=== PATIENT | female | born 1975 | race Caucasian/White ===

== ENCOUNTER 2020-04-09 08:41 | Outpatient (CLI) | payer OTHER, SELFPAY ==
--- NOTE | ~2020-04-09 | XR_ITS ---
XR wrist RT 2V DATE: 04/09/2020 08:57 INDICATION: Fall 2 weeks ago. Medial wrist pain. TECHNIQUE: AP and lateral views COMPARISON: None FINDINGS: No fracture, dislocation, periosteal reaction or bone destruction, erosive change or chondr ocalcinosis. IMPRESSION: Negative Reviewed, dictated and finalized at location A. IMPRESSION: Negative
== END 2020-04-09 08:42 | disposition home or self-care (01) ==
PROVIDERS: PCP Family Medicine; Visit Provider Physician Assistant Medical
DX: S69.91XA Unspecified injury of right wrist, hand and finger(s), initial encounter (principal)
CPT/HCPCS: 73100

== ENCOUNTER 2020-10-14 11:02 | Outpatient (CLI) | payer OTHER, SELFPAY ==
--- NOTE | ~2020-10-14 | XR_ITS ---
EXAMINATION: XR shoulder LT min 2V DATE: 10/14/2020 11:24 INDICATION: Left shoulder pain. TECHNIQUE: 4 views of left shoulder were obtained. COMPARISON: None. FINDINGS: Bone alignment is normal. No fracture. Acromioclavicular joint is normal. There is mild gle nohumeral joint osteoarthritis characterized by a tiny marginal osteophyte. IMPRESSION: 1. Mild left glenohumeral joint osteoarthritis. Reviewed, dictated and finalized at location A. [employer]
== END 2020-10-14 11:03 | disposition home or self-care (01) ==
LOC: ANHIMG 11:09
PROVIDERS: PCP Family Medicine; Visit Provider Physician Assistant Medical
DX: M19.012 Primary osteoarthritis, left shoulder (principal)
CPT/HCPCS: 73030

== ENCOUNTER 2022-10-25 00:59 | Day surgery (SDC) | payer OTHER, SELFPAY ==
[2022-10-08 14:54] VITALS: BMI 23.3
--- NOTE | 2022-10-25 12:08 | PM.HPGS ---
History of Present Illness History of Present Illness Consent: Risks, benefits, and alternatives have been discussed and questions answered. Patient agrees to proceed with procedure. Chief complaint: constipation, change in bowel habits Narrative: Mitra Gay is a 47 year old female here with ibs-constipation and intermittent abdominal pain, last colonoscopy 2010 Review of Systems Constitutional: Constitutional: Denies headache(s) and Denies weakness Eyes: Eyes: Denies blurry vision ENT: Reports Normal hearing present, Denies headache(s) and Denies neck pain Cardiovascular: Cardiovascular: Denies chest pain and Denies dyspnea Respiratory: Respiratory: Denies dyspnea Gastrointestinal: Gastrointestinal: Reports no additional gastrointestinal complaints Genitourinary: Genitourinary: Denies dysuria Musculoskeletal: Musculoskeletal: Denies neck pain Integumentary/Breasts: Skin/Breast: Denies dry skin Neurologic: Reports Normal hearing present, Denies headache(s) and Denies weakness Psychiatric: Psychiatric: Denies anxiety Endocrine: Endocrine: Denies change in body appearance Hematologic/Lymphatic: Hematologic/Lymphatic: Denies easy bleeding Allergic/Immunologic: Allergic/Immunologic: Denies urticaria PMFSH Past Medical History Medical History (Updated 09/15/22 @ 14:59 by Nani Locke APRN) Abdominal pain Body mass index (BMI) 23 or greater Change in bowel habits Chronic headache Colon cancer screening GERD (gastroesophageal reflux disease) Vagina bleeding Family History Family History Father Hypertension Mother Carcinoma Social History Social History Smoking status: Never smoker Alcohol intake: current Drinks per week: 2 Substance use: never Substance use type: does not use Living arrangements: with family Gender identity (if verbalized by the patient): Female Spiritual care concerns: No Meds Home Medications and Allergies Home Medications Medication Instructions Recorded Confirmed Type topiramate 25 mg tablet (Topamax) 125 mg PO DAILY 10/09/19 10/08/22 History venlafaxine 150 mg tablet,extended 225 mg PO QAM 10/10/19 10/08/22 History release 24 hr omega 4-cxo-uhf-fish oil 60 mg-90 2 cap PO DAILY 08/30/22 10/08/22 History mg-500 mg capsule (Fish Oil) buspirone 7.5 mg tablet 7.5 mg PO BID #60 tabs 09/11/22 10/08/22 Rx omeprazole 40 mg capsule,delayed 40 mg PO DAILY #30 caps 09/15/22 10/08/22 Rx release ubrogepant 50 mg tablet (Ubrelvy) 50 mg PO DAILY PRN Migraine 10/08/22 10/08/22 History Headache Allergies Allergy/AdvReac Type Severity Reaction Status Date / Time codeine Allergy Unknown Unknown Verified 10/08/22 14:52 Exam Const: General: comfortable and no acute distress HENMT: Face/Nose/Sinus: Normal nares present Eyes: General: appearance normal, both eyes and all related structures Neck: Neck: no JVD Resp: Auscultation: clear to auscultation bilaterally Cardio: Rate: regular rate Rhythm: regular rhythm GI: Inspection: non-distended GI Palp: Yes Soft to palpation Skin: General skin exam: normal color Neuro: General: gait normal Speech: normal speech Extrem: General: normal to inspection Psych: Mental Status: mental status grossly normal Assessment and Plan Assessment and plan (1) Constipation: Code(s): K59.00 - Constipation, unspecified Status: Acute Assessment and Plan: colonoscopy (2) Colon cancer screening: Code(s): Z12.11 - Encounter for screening for malignant neoplasm of colon Status: Acute (3) IBS (irritable bowel syndrome): Qualifiers: Irritable bowel syndrome type: with both diarrhea and constipation Qualified Code(s): K58.2 - Mixed irritable bowel syndrome Code(s): K58.9 - Irritable bowel syndrome without diarrhea Statu
[2022-10-25 12:12] VITALS: BP 116/75; PULSE 96; RESP 18; TEMP 36.3; O2SAT 100
--- NOTE | 2022-10-25 12:15 | WPDANESEPPF ---
Anes - Initial Pre Proc Eval Procedure: Operation Date: 10/25/22 13:30 Proposed Procedures p Colonoscopy - Graeme Vale MD Date/Time: 10/25/22 12:15 Surgeon: Graeme Vale MD Pre Op Diagnosis: constipation, change in bowel habits Patient Data Age: 47 Gender: F Height: 1.75 m Weight: 71 kg Last Vital Signs Temp 36.3 C L 10/25/22 12:12 Pulse 96 10/25/22 12:12 Resp 18 10/25/22 12:12 BP 116/75 10/25/22 12:12 Pulse Ox 100 10/25/22 12:12 O2 Del Method Room Air 10/25/22 12:12 Allergies Allergy/AdvReac Type Severity Reaction Status Date / Time codeine Allergy Unknown Unknown Verified 10/25/22 12:11 Home Medications Medication Instructions Recorded Confirmed Type topiramate 25 mg tablet (Topamax) 125 mg PO DAILY 10/09/19 10/08/22 History venlafaxine 150 mg tablet,extended 225 mg PO QAM 10/10/19 10/08/22 History release 24 hr omega 8-sxr-sfx-fish oil 60 mg-90 2 cap PO DAILY 08/30/22 10/08/22 History mg-500 mg capsule (Fish Oil) buspirone 7.5 mg tablet 7.5 mg PO BID #60 tabs 09/11/22 10/08/22 Rx omeprazole 40 mg capsule,delayed 40 mg PO DAILY #30 caps 09/15/22 10/08/22 Rx release ubrogepant 50 mg tablet (Ubrelvy) 50 mg PO DAILY PRN Migraine 10/08/22 10/08/22 History Headache Patient hx anesthesia problems: none Family hx anesthesia problems: none Results Review: All pre-operative results and documents have been reviewed as part of the pre-operative evaluation. FOR[facility], [facility] Past Medical History Medical History Abdominal pain Body mass index (BMI) 23 or greater Change in bowel habits Chronic headache Colon cancer screening GERD (gastroesophageal reflux disease) Vagina bleeding Surgical History Surgical History (Updated 10/25/22 @ 12:15 by Ariel Goddard MD) History of appendectomy History of cholecystectomy Hx of tonsillectomy Family History Family History Father Hypertension Mother Carcinoma Social History Social History Smoking status: Never smoker Alcohol intake: current Drinks per week: 2 Substance use: never Substance use type: does not use Living arrangements: with family Gender identity (if verbalized by the patient): Female Spiritual care concerns: No Anes - Eval Final PreProcedure Day of Procedure 10/25/22 12:15 Patient weight: normal Heart: regular rate and rhythm Lungs: clear to auscultation Airway: Mallampati scale class II Neurological: alert and oriented Last oral intake: >/= 8 hours ASA classification: II Emergent: no Anesthetic plan: proceed Anesthesia type and monitoring: general GIVS and standard monitoring Results Review: All pre-operative results and documents have been reviewed as part of the pre-operative evaluation. Informed Consent: The patient's anesthetic plan and its attendant risks and benefits were discussed with the patient/family/POA. Questions were solicited and answers provided to the satisfaction of the patient/family/POA.
[2022-10-25] MEDS: LACTATED RINGERS 1,000 ML 150 ML IV CONT (12:18)
[2022-10-25 12:55] VITALS: BP 96/63; PULSE 86; RESP 24; O2SAT 100
[2022-10-25 13:05] VITALS: BP 94/64; PULSE 75; RESP 16; O2SAT 100
[2022-10-25 13:15] VITALS: BP 100/68; PULSE 70; RESP 16; O2SAT 100
== END 2022-10-25 13:28 | disposition home or self-care (01) ==
PROVIDERS: PCP Family Medicine; Visit Provider Internal Medicine Gastroenterology
PROC: 0DJD8ZZ Inspection of Lower Intestinal Tract, Via Natural or Artificial Opening Endoscopic (ICD-10-PCS; CPT 45378; principal; 2022-10-25 13:30)
DX: Z12.11 Encounter for screening for malignant neoplasm of colon (principal); K63.5 Polyp of colon; K64.8 Other hemorrhoids; K58.2 Mixed irritable bowel syndrome; K21.9 Gastro-esophageal reflux disease without esophagitis
CPT/HCPCS: 45385; 88305; J2704; J7120

== ENCOUNTER 2024-03-29 08:27 | Outpatient (CLI) | payer OTHER, SELFPAY ==
--- NOTE | ~2024-03-29 | XR_ITS ---
Left elbow Technique: AP, oblique, and lateral views were obtained. Clinical History: Pain Findings: No acute fracture or dislocation is seen. Osseous alignment is anatomic. Joint spaces are p reserved. There is no displacement of the fat pads, and soft tissues are unremarkable. Impression: Unremarkable radiographs. Reviewed, dictated and finalized at location . Impression: Unremarkable radiographs.
== END 2024-03-29 08:28 | disposition home or self-care (01) ==
LOC: ANHIMG 08:29
PROVIDERS: PCP Family Medicine; Visit Provider Physician Assistant Medical
DX: M25.522 Pain in left elbow (principal)
CPT/HCPCS: 73080